=== PATIENT | male | born 1980 | race Hispanic/Latino ===

== ENCOUNTER 2016-12-06 18:56 | Emergency (ER) | payer SELFPAY ==
[~2016-12-06 18:56] MED LIST: ISOVUE-370 76%-LOCM 1 ML ONE
[2016-12-06 19:20] LABS: #Basophils 0.1 thou/uL (0.0-0.2); #Eosinphils 0.4 thou/uL (0.0-0.7); #Lymphocytes 2.6 thou/uL (1.20-3.40); #Monocytes 0.4 thou/uL (0.11-0.59); #Neutrophils 3.5 thou/uL (1.40-6.50); %Basophils 0.8 % (0.0-1.0); %Eosinophils 6.2 % (0.0-10.0); %Lymphocytes 37.2 % (21.0-51.0); %Monocytes 6.1 % (0.0-10.0); Hematocrit 43.6 % (42.0-52.0); Mean Platelet Volume 7.9 fL (7.4-10.4); Red Blood Cell (RBC) Count 4.73 mill/uL (4.70-6.10)
--- NOTE | 2016-12-06 19:29 | RAD ---
UPRIGHT PORTABLE CHEST: 12/06/16 HISTORY: 36-year-old male with chest pain. History of recent diagnosis of kidney cancer with shortness of hernando ath and chest pain today. Monitor leads overlie the chest. There is mild vascular congestion. Heart size is within normal limi ts. No confluent pneumonia or overt edema. IMPRESSION: Mild vascular congestion. No pneumonia, edema, pleural effusion or other acute process. No old studi es. POS: GAVIN
[2016-12-06 19:42] LABS: ALT (SGPT) 41 U/L (8-55); AST (SGOT) 26 U/L (5-34); Alkaline Phosphatase 87 U/L (40-150); Anion Gap 15 mmol/L (10-20); BUN (Urea Nitrogen) 11 mg/dL (8.9-20.6); Bilirubin, Total 0.4 mg/dL (0.2-1.2); Calc. Creatinine Clearance 0 mL/min (70-130); Calcium 9.6 mg/dL (7.8-10.44); Carbon Dioxide 23 mmol/L (22-29); Chloride 108 mmol/L (98-107); Estimated GFR-MDRD 88; Globulin 4.4 g/dL (2.4-3.5); Magnesium 2.4 mg/dL (1.6-2.6); Protein, Total 8.9 g/dL (6.0-8.3)
[2016-12-06 19:45] LABS: Troponin I Less than 0.010 ng/mL (< 0.028)
--- NOTE | 2016-12-06 20:14 | CT ---
CT PULMONARY ANGIO CHEST INCLUDING 3D RENDERIN12/06/16 HISTORY: 36-year-old male with recently diagnosed kidney cancer with shortness of breath and chest pain today . There is an approximately 0.4 cm diameter subpleural pulmonary nodule in the anterior right upper lo be. No CT evidence for significant acute PE. Some of the more distal branches, particularly in the l ower lobes are suboptimally imaged because of motion and contrast bolus. No evidence of aortic aneur ysm or dissection. No pleural effusion or pericardial effusion. On the lower most scan slices throug h the right kidney, there is an approximately 3.1 cm diameter abnormal enhancing mass, evidence for renal cell malignancy. IMPRESSION: Central pulmonary arteries are free of thrombus. Some of the more distal branches are partially obsc ured because of motion and low density of the contrast bolus but there is no significant CT evidence for acute PE. Right renal mass. Right upper lobe subpleural 0.4 cm diameter pulmonary nodule. POS: JUAN C
[2016-12-06 20:19] LABS: Bilirubin Negative (Negative); Blood, Urine Negative (Negative); Glucose, Urine (Dipstick) Negative (Negative); Ketone, Urine Negative (Negative); Nitrite Negative (Negative); Protein, Urine (Dipstick) Negative (Neg-Trace); Urobilinogen 0.2 mg/dL (0.2-1.0)
== END 2016-12-06 22:40 | disposition home or self-care (01) ==
LOC: ERS 18:56
DX: E86.0 Dehydration (principal); R55 Syncope and collapse; N28.89 Other specified disorders of kidney and ureter; F17.210 Nicotine dependence, cigarettes, uncomplicated
CPT/HCPCS: 71010; 71275; 80053; 81003; 82553; 83735; 83880; 84484; 85025; 85379; 93005; 96360; 96361

== ENCOUNTER 2017-04-28 07:48 | Outpatient (CLI) | payer OTHER, SELFPAY ==
[2017-04-28] MEDS ORDERED: Iopamidol 370 76% 100 ML VIAL ONE (16:46)
== END 2017-04-28 07:49 | disposition home or self-care (01) ==
LOC: BICCT 07:48
PROVIDERS: ATTEND Urology
DX: N28.89 Other specified disorders of kidney and ureter (principal); M51.36 Other intervertebral disc degeneration, lumbar region; M48.061 Spinal stenosis, lumbar region without neurogenic claudication
CPT/HCPCS: 71046; 74170

== ENCOUNTER 2017-04-30 21:11 | Emergency (ER) | payer SELFPAY ==
[2017-04-30 22:10] LABS: Bilirubin Negative (Negative); Blood, Urine Negative (Negative); Clarity CLEAR (Clear); Glucose, Urine (Dipstick) Negative (Negative); Leukocyte Negative (Negative); Nitrite Negative (Negative); Protein, Urine (Dipstick) Negative (Neg-Trace); Specific Gravity, Urine 1.034 (1.002-1.036)
[2017-04-30 23:04] LABS: #Basophils 0.1 thou/uL (0.0-0.2); #Eosinphils 0.4 thou/uL (0.0-0.7); #Lymphocytes 2.2 thou/uL (1.20-3.40); #Monocytes 0.6 thou/uL (0.11-0.59); #Neutrophils 3.6 thou/uL (1.40-6.50); %Basophils 1.1 % (0.0-1.0); %Eosinophils 6.3 % (0.0-10.0); %Lymphocytes 31.4 % (21.0-51.0); %Neutrophils 52.3 % (42.0-75.0); Hemoglobin 15.6 g/dL (14.0-18.0); Mean Corpuscular HGB CONC 34.6 g/dL (32.0-36.0); Mean Corpuscular Hemoglobin 31.2 pg (27.0-31.0); Mean Corpuscular Volume 90.3 fl (80.0-94.0); Mean Platelet Volume 7.7 fL (7.4-10.4); Platelet Count 211 thou/uL (130-400); RBC Distribution Width 11.9 % (11.5-14.5); Red Blood Cell (RBC) Count 4.99 mill/uL (4.70-6.10)
--- NOTE | 2017-04-30 23:12 | ULT ---
ULTRASOUND ABDOMEN LIMITED: (RIGHT UPPER QUADRANT) DATE: 04/30/17 TIME: 10:30 p.m. HISTORY: 36-year-old male with right upper quadrant abdominal pain. FINDINGS: Gallbladder: Contracted due to non-NPO status. No mural thickening. Sensitivity is decreased because of the contracted state, but no large gallstone is identified. No pericholecystic edema. Common duct: 4 mm. Liver: Normal size and echogenicity. Pancreas: Poorly visualized because of body habitus and partial obscuring by shadowing from bowel gas . Right kidney: There is an approximately 3.5 x 3.5 x 4 cm right renal upper pole, partially exophytic, solid mass, with mixed intermediate and low echogenicity, and blood flow. This was demonstrated on a CT angiogram of the chest of 12/06/16, and reported. There is no hydronephrosis of the right kidney. IMPRESSION: 1. Right renal solid mass is evidence for right renal neoplasm, such as renal cell carcinoma. Ur ology consultation is strongly recommended. 2. Contracted gallbladder. No convincing evidence of acute cholecystitis. Code T JN R POS: JUAN C
[2017-04-30 23:23] LABS: ALT (SGPT) 34 U/L (8-55); AST (SGOT) 24 U/L (5-34); Albumin 4.6 g/dL (3.5-5.0); Alkaline Phosphatase 88 U/L (40-150); Anion Gap 14 mmol/L (10-20); BUN (Urea Nitrogen) 13 mg/dL (8.9-20.6); Bilirubin, Total 0.4 mg/dL (0.2-1.2); Calc. Creatinine Clearance 0 mL/min (70-130); Calcium 9.7 mg/dL (7.8-10.44); Carbon Dioxide 25 mmol/L (22-29); Chloride 106 mmol/L (98-107); Estimated GFR-MDRD 89; Globulin 4.2 g/dL (2.4-3.5); Glucose 70 mg/dL (70-105); Lipase 35 U/L (8-78); Potassium 3.8 mmol/L (3.5-5.1); Protein, Total 8.8 g/dL (6.0-8.3); Sodium 141 mmol/L (136-145)
== END 2017-05-01 00:35 | disposition left against medical advice (07) ==
LOC: ERS 21:11
DX: Z53.21 Procedure and treatment not carried out due to patient leaving prior to being seen by health care provider (principal)
CPT/HCPCS: 36415; 76705; 80053; 81003; 83690; 85025

== ENCOUNTER 2017-05-02 11:02 | Outpatient (CLI) | payer OTHER | END 2017-05-02 11:03 | disposition home or self-care (01) | LOC: BICULT 11:02 | PROVIDERS: ATTEND Urology | DX: R10.11 Right upper quadrant pain (principal); N28.89 Other specified disorders of kidney and ureter | CPT/HCPCS: 76705 ==

== ENCOUNTER 2017-05-14 09:00 | Inpatient (IN) | payer OTHER, SELFPAY ==
--- NOTE | 2017-05-08 07:58 | HP ---
HISTORY OF PRESENT ILLNESS: Hima Luu is a 36-year-old Ukrainian speaking only male who is accompani ed by his . The patient reports to see me regarding several problems. He sees me regarding the left perianal intermittently draining wound. He apparently has been seen at the [facility] on 06/2016, [facility] on 09/2016, [facility] on 11/2016. Different CAT scans have revealed gas containing fluid collection left perianal. [facility] on , he had incision and drainage and return there for wound care and packing. He has had at [facility] t 2 if not 3 incision and drainages procedures. He has never seen the surgeon regarding care of this . GI function was otherwise normal. The patient was referred by Dr. Anita Valencia, when the patient made efforts to make an appointment to see her about a right superior pole renal mass 3.5 x 4 cm milly urements according to CAT scans obtained on 09/2016. On 11/2016, he did have a CT angio at [facility] and a right renal mass was appreciated. The patient complains of intermittent pain, right upper quadrant and right flank associated with naus ea and vomiting at times. He perceives that when he has the pain, he has radiation towards his testi naya and perceives that there is drainage of food that he consumed out the wound, left perianal. On , CBC at [facility]. Chemistries at [facility] comprehensive metabolic pro file are normal. He has an appointment to see Dr. Anita Valencia of Urology regarding the right renal mass. 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 His accompanies him and she speaks very good Irish. ALLERGIES: None. ALCOHOL: None. TOBACCO: None. MEDICATIONS: None. PAST SURGICAL HISTORY: Noncontributory. PAST MEDICAL HISTORY: None except as noted above, incision and drainage of left perianal areas at [facility] two or three different occasions. 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 REVIEW OF SYSTEMS: Ten-point noncontributory otherwise. PHYSICAL EXAMINATION: VITAL SIGNS: Weight 259 pounds, height 70 inches, blood pressure 140/81, pulse 87, temperature 98.4 degrees. LUNGS: Clear to auscultation. CARDIAC: Regular rate and rhythm without murmur or gallop. ABDOMEN: Obese, soft, nontender. He has mild tenderness in his right upper quadrant, but no periton eal signs. Left perianal reveals a scar from previous drainage. He has hypertrophied area wit h thinned out skin with probably underlying sinus that is slightly tender. There is slight induratio n towards the anus, but no fluctuance and no redness and no evidence of current abscess. ASSESSMENT AND PLAN: 1. 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 A drain is not necessary at this time. He has no active infection. He does, however, need exam under anesthesia and possibly seton placem ent versus fistulotomy. A quick solution may be possible, but on the other hand, he may need a seton , which could worked in several weeks or months therapy and probably not require secondary surgical p rocedure under anesthesia. 2. Episodic right upper quadrant pain, back radiation, nausea and vomiting. I doubt this is related to his right renal mass. His description of radiation towards his testicle and pain is uncertain an d does not make sense to me. Gallstones were not seen on his CAT scan. CAT scan reports from [facility] in the [facility]. Would recommend gallbladder ultrasound. We jackie l check finances see if he can afford that. 3. Right renal mass. Appointment to see Dr. Anita Valencia, await her opinion. 4. In my opinion, the patient's perirectal problem and right renal problem could be addressed under the same anesthesia. We will await Dr. Anita Valencia's evaluation and discussed with her after that.
[2017-05-14 09:52] VITALS: BMI 36.7
[2017-05-20] MEDS ORDERED: CEFAZOLIN/Water 2 GM/20 ML SYRINGE ONE (06:44)
[2017-05-20] MEDS ORDERED: Lidocaine 2% 10 ML INJ ONE (07:10)
[2017-05-20] MEDS ORDERED: Bupivacaine PF 0.5% 30 ML VIAL ONE (07:10)
[2017-05-20] MEDS ORDERED: Ioversol 68 % 50 ML VIAL ONE (07:10)
[2017-05-20] MEDS ORDERED: Fentanyl 100 MCG/2 ML VIAL ONE (07:18)
[2017-05-20] MEDS ORDERED: Midazolam HCl 2 mg/2 ml Vial ONE (07:18)
[2017-05-20] MEDS ORDERED: Fentanyl 250 MCG/5 ML VIAL ONE ×2 (07:26→08:47)
[2017-05-20] MEDS ORDERED: Rocuronium Bromide 50 MG/5 ML VIAL ONE ×2 (08:47→08:48)
[2017-05-20] MEDS ORDERED: HYDROmorphone 0.5 MG/0.5 ML SYRINGE ONE ×4 (11:58→12:57)
[2017-05-20] MEDS ORDERED: Acetaminophen 500 MG TAB PO SCH (13:00)
[2017-05-20] MEDS ORDERED: Morphine 4 MG/ML VIAL SLOW IVP PRN ×3 (13:04→17:30)
[2017-05-20] MEDS ORDERED: Ondansetron HCl/PF 4 MG/2 ML Vial IVP PRN ×2 (13:04→13:26)
[2017-05-20] MEDS ORDERED: Metoclopramide HCl 10 MG/2 ML VIAL IVP PRN (13:04)
[2017-05-20] MEDS ORDERED: diphenhydrAMINE 50 MG in Sodium Chloride 0.9% 50 ML IVPB PRN (13:05)
[2017-05-20] MEDS ORDERED: Promethazine HCl 25 MG/ML VIAL SLOW IVP PRN (13:26)
[2017-05-20] MEDS ORDERED: Promethazine HCl 25 MG/ML VIAL IM PRN (13:26)
[2017-05-20] MEDS ORDERED: Morphine Sulfate 2 MG/ML SYRINGE SLOW IVP PRN (13:26)
[2017-05-20] MEDS ORDERED: PROPOFOL 200 MG/20 ML VIAL ONE (13:51)
[2017-05-20] MEDS ORDERED: Glycopyrrolate 0.2 MG/ML 5 ML SYRINGE ONE (13:51)
[2017-05-20] MEDS ORDERED: Dexamethasone 20 MG/5 ML VIAL ONE (13:51)
--- NOTE | 2017-05-20 15:15 | OP ---
DATE OF PROCEDURE: 05/20/2017 PREOPERATIVE DIAGNOSIS: Right renal mass. POSTOPERATIVE DIAGNOSIS: Right renal mass. PROCEDURE: Hand-assisted laparoscopic nephrectomy on the right. SURGEON: Anita Valencia M.D. ANESTHESIA: General with ET tube. COMPLICATIONS: None, but did require 2 vascular juan to completely include the renal hilum. SPECIMEN: Kidney. ESTIMATED BLOOD LOSS: 200, crystalloid 1200, urine output 600. DRAIN REMAINING: Was a 16-Burundian Conrad. INDICATIONS: The patient is a 36-year-old male, who was seen in the office after having been diagnosed with a concerning renal mass in 09/2016 and saw me for the first time in 04/2017. After completing a workup, it was deemed likely to be consistent with renal cell carcinoma without any concern for metastases. So, we set up for a nephrectomy. The patient was brought into the room by Anesthesia, laid on the table in supine position. After receiving general anesthetic, his abdomen was shaved and then marked accordingly. A Conrad catheter was placed and then the patient was positioned in semi-lateral with the beanbag and multiple cushions of support in all weightbearing areas. He was securely taped to the bed at the arm , shoulder, chest, hip, thigh, and lower leg. Then, he was prepped and draped in sterile fashion. An incision was made in the right lower quadrant, taken down to the fascia, opening up the oblique and transversalis keeping lateral to the rectus muscle and then taken down to the peritoneum, which was then grasped and sharply opened. The incision was widened and noted to be able to be large enough for my hand to go in and out and then a GelPort was placed with the hand and insufflation; initially thought there was insufflation, but had not been turned on quite yet. Two other ports were placed midline just above the umbilicus and then in the epigastrium. After further dissection, a liver retractor was placed at the mid axillary line through a 5 mm port for retracting the liver throughout the rest of the case. The insufflation was adequate for the second port and was not really needed for the first. With both ports in, then the table angled more to the left and resection began. The colon was taken down on the white line of Toldt and rotated medially. There were still attachments from the mesentery over the anterior superior kidney and these were carefully taken down, but not before releasing both the hepatic ligaments and the hepatorenal ligaments with the LigaSure. Then, attention was turned to the inferior portion of the kidney where the fat was taken down to the psoas muscle and the ureter located and identified and then followed up towards the renal hilum where the duodenum did not need to be kocherized as it was medial enough that the renal vein was identified fairly easily and carefully dissected out. There appeared to be a smaller arterial vessel next to it that was not easily noted on the CT, as it did appear that there was only 1 artery, but it did appear that it branched very early and this certainly was the case. His hilum was further dissected, some of the posterior attachments were then taken down with the LigaSure in order to mobilize it and allow my hand to be under the kidney and further dissect around the hilum itself. Some of the anterior attachments were further released with LigaSure and in the area of the superior portion of the hilum where the branching of the artery was noted. So, care was taken to go more medial to this. At this point , I went ahead and ligated the ureter itself and this was done with clips both proximally and distally and going across it the LigaSure and elevating the inferior portion of the kidney and getting my hand around the entire hilum itself. I was able to place a vascular stapler. Once this was just simply clasped and closed without any resection, some bleeding was noted consistent with having been torn at the level of the kidney, just in clamping the hilum. For this reason, resection of this occurred rapidly and there still appeared to be some bleeding noted. There was still an attachment at the hilum, so a second vascular staple was rapidly positioned after carefully placing it on the remaining attachments. During this placement, it was clearly noted that there was bleeding from the kidney itself as back bleeding as opposed to anything from the hilum. Once the second portion of the hilum was transected, it appeared that there was only back bleeding remaining. However, the entire anterior and some of the lateral attachments of the kidney were still present. So, in order to better assess things, I used the vascular staple to go across the anterior portion likely--leaving the majority, if not all, of the adrenal gland as I hugged the superior portion of the kidney. Once this was freed, I was able to better assess the bed. The hilum was not bleeding, and the rest of the lateral attachments were taken down with the LigaSure. Then, the kidney was removed easily through the hand port; no bag was needed. Attention was turned back to the hilum and the adrenal bed. No obvious bleeding was noted. Significant irrigation then occurred to better assess this area, and still no bleeding was noted. I then placed some FloSeal in the area of the adrenal bed as well as over the crossed vessels. Then, the laparoscopic ports were removed and the GelPort removed off of the hand port, but left the port itself in place in order to use this to help elevate and close the two 10 and 12 ports that had been placed midline. A 2-0 Vicryl was used to close the fascia in the 10 and 12 ports. No fascia was closed in the 5 mm port. One good solid bite for each was noted and there was significant angling of the port entrance. This felt like it was adequately closed when palpated from above and below. Then, using #1 PDS, the hand port incision was closed, reapproximating the transversalis and oblique fascia starting from the lateral ends and meeting in the middle with all the fascia closed and then all incisions were irrigated copiously. A 3-0 Vicryl was used to reapproximate the dermis and then 4-0 Monocryl was used to reapproximate the subcutaneous tissue. Steri-Strips and sterile dressing were applied. The patient tolerated the procedure well and was then awakened and transferred to the PACU in stable condition. Prior to placing the final dressings on, a total of 20 mL lidocaine and Marcaine mixture was injected in the hand port and the laparoscopic port sites and the patient was then transferred to the PACU in stable condition. NATHALIE
[2017-05-20] MEDS: Lactated Ringer's 1,000 ML IV SCH (15:39)
[2017-05-20] MEDS: Heparin 5,000 UNITS/ML VIAL SC SCH ×2 (15:40→22:36)
[2017-05-20] MEDS: Acetaminophen 500 MG TAB PO SCH (18:11)
[2017-05-20] MEDS: Morphine 4 MG/ML VIAL SLOW IVP PRN ×2 (19:05→22:33)
[2017-05-20] MEDS ORDERED: Famotidine/PF 20 mg/2ml Vial SLOW IVP SCH (21:00)
[2017-05-20] MEDS: Pantoprazole 40 MG VIAL IVP SCH (22:34)
[2017-05-20] MEDS: Docusate 100 MG CAP PO SCH (22:35)
[2017-05-21] MEDS: Lactated Ringer's 1,000 ML IV SCH ×4 (00:45→18:12)
[2017-05-21] MEDS: Acetaminophen 500 MG TAB PO SCH ×2 (00:50→06:31)
[2017-05-21 05:42] LABS: Hemoglobin 14.8 g/dL (14.0-18.0)
[2017-05-21 06:08] LABS: Anion Gap 15 mmol/L (10-20); BUN (Urea Nitrogen) 16 mg/dL (8.9-20.6); Calc. Creatinine Clearance 125 mL/min (70-130); Calcium 9.2 mg/dL (7.8-10.44); Carbon Dioxide 22 mmol/L (22-29); Chloride 104 mmol/L (98-107); Estimated GFR-MDRD 60; Glucose 112 mg/dL (70-105); Potassium 4.2 mmol/L (3.5-5.1); Sodium 137 mmol/L (136-145)
[2017-05-21] MEDS: Morphine 4 MG/ML VIAL SLOW IVP PRN ×4 (06:30→21:53)
[2017-05-21] MEDS: Docusate 100 MG CAP PO SCH ×2 (09:02→21:35)
[2017-05-21] MEDS: Heparin 5,000 UNITS/ML VIAL SC SCH ×3 (09:03→21:35)
--- NOTE | 2017-05-21 09:16 | PRG ---
DATE OF SERVICE: 05/21/2017. SUBJECTIVE: The patient has done well overnight. He has no complaints. He has had some burping with rumbling in the abdomen, but no passage of gas. No nausea or vomiting since yesterday. His pain is controlled. He is breathing well without any shortness of breath. OBJECTIVE: VITAL SIGNS: Have been stable. His heart rate has come down from 100s to 70s- 80s, sat'ing 96% on room air and afebrile. His urine output was 1100 overnight. He is draining clear yellow urine. LUNGS: Clear to auscultation and he was able to get up to almost 1500 on the incentive spirometer. ABDOMEN: Softly distended with the dressings with old drainage noted. Appropriately tender. LABORATORY DATA: Revealed a hemoglobin and hematocrit of 14.8 and 42.1 and a normal chemistry with BUN and creatinine of 16 and 1.35. ASSESSMENT AND PLAN: A 36-year-old male status post hand-assisted laparoscopic nephrectomy on the right for renal mass, doing well on postoperative day #1. We will remove the Conrad and allow him to void on his own. He should ambulate as much as possible and continue the incentive spirometer and await bowel function return. NATHALIE
[2017-05-21] MEDS: Pantoprazole 40 MG VIAL IVP SCH (21:35)
[2017-05-22] MEDS: Lactated Ringer's 1,000 ML IV SCH (05:16)
--- NOTE | 2017-05-22 06:23 | EKG ---
Test Reason : Blood Pressure : / mmHG Vent. Rate : 088 BPM Atrial Rate : 088 BPM P-R Int : 142 ms QRS Dur : 084 ms QT Int : 332 ms P-R-T Axes : 051 032 006 degrees QTc Int : 401 ms Normal sinus rhythm with sinus arrhythmia Normal ECG When compared with ECG of 14-MAY-2017 09:50, (Unconfirmed) Nonspecific T wave abnormality now evident in Lateral leads Confirmed by AMIE JOHNSON ([id number]) on 05/22/2017 6:14:37 AM Referred By: Confirmed By:AMIE JOHNSON
[2017-05-22] MEDS: Heparin 5,000 UNITS/ML VIAL SC SCH ×3 (09:26→22:15)
[2017-05-22] MEDS: Docusate 100 MG CAP PO SCH ×2 (09:26→22:15)
--- NOTE | 2017-05-22 11:27 | PRG ---
DATE OF SERVICE: 05/22/2017 SUBJECTIVE: The patient did well overnight. He has been walking in the halls. He has less dyspepsi a and more movement related to the bowels, but has not passed gas. No vomiting. His catheter was re moved yesterday and he is voiding without difficulty. PHYSICAL EXAMINATION: VITAL SIGNS: Vital signs have been stable. He has excellent urine output. LUNGS: Clear to auscultation bilaterally and he could do 1500 on the incentive spirometer. ABDOMEN: Softly distended with bowel sounds noted. The dressings were removed and the incisions wer e clean, dry, and intact with Steri-Strips. EXTREMITIES: He had no lower extremity edema. ASSESSMENT: We have a 36-year-old male postop day #2 from a right hand-assisted laparoscopic nephrec richard, doing well. We will change his fluids over to maintenance and he may shower as long as the chinedu er does not hit directly onto his abdomen. We will hold off on a diet until he passes gas.
[2017-05-22] MEDS: D5 1/2 NS w/10 mEq KCl 1,000 ML/1,000 ML BAG IV SCH (11:45)
[2017-05-22] MEDS: Morphine 4 MG/ML VIAL SLOW IVP PRN ×3 (12:01→22:26)
[2017-05-22] MEDS: Pantoprazole 40 MG VIAL IVP SCH (22:16)
[2017-05-23] MEDS: D5 1/2 NS w/10 mEq KCl 1,000 ML/1,000 ML BAG IV SCH ×2 (01:49→15:55)
[2017-05-23] MEDS: Docusate 100 MG CAP PO SCH (09:00)
[2017-05-23] MEDS: Heparin 5,000 UNITS/ML VIAL SC SCH (09:01)
[2017-05-23] MEDS ORDERED: Acetaminophen/Codeine 30-300mg Tablet PO PRN ×2 (10:26)
--- NOTE | 2017-05-23 13:45 | PRG ---
DATE OF SERVICE: 05/23/2017 SUBJECTIVE: The patient has done well overnight, slept well and only needed pain medicine once. He feels like his gas is ready to be passed, but he has not passed it. He has had much less burping and no nausea. He is ambulating without difficulty and doing well on the incentive spirometer. OBJECTIVE: VITAL SIGNS: Afebrile. Vital signs stable. He has slightly high blood pressure. The night before 142/90, but otherwise 127/86 and doing well. The incentive spirometer getting above 2000. LUNGS: Clear to auscultation bilaterally. HEART: Regular rate and rhythm with no murmurs, gallops, rubs. ABDOMEN: Softly distended with bowel sounds. Incisions clean, dry, and intact with Steri-Strips. ASSESSMENT: This is a 36-year-old male postop day #3 of right hand-assisted laparoscopic nephrectomy showing RCC Aurora grade III, doing well, awaiting bowel activity. We reviewed his pathology resul ts in detail and expected follow up surveillance for that. We also reviewed in anticipation of passi ng gas. Once this occurs, we will advance his diet, change him over to oral medicines and as long as he is tolerating that he should be able to be discharged. At this point, continue current care and await flatus.
[2017-05-23 16:52] VITALS: BP 125/78; TEMP 97.9
--- NOTE | 2017-05-23 23:21 | DIS ---
DATE OF SERVICE: 05/23/2017 ADMISSION DIAGNOSIS: Right renal mass. DISCHARGE DIAGNOSIS: Right renal mass, status post hand-assisted laparoscopic nephrectomy for renal cell carcinoma, Aurora grade III, negative margins. Please see the patient's H&P for full details, but he was found to have right-sided renal mass and se t up for resection. He had this on 05/20/2017 and did well postoperatively. By the day of discharge , he was ambulating, his pain was controlled with oral medicines, and he was tolerating intake. He w ill be discharged home with a prescription for pain medicine as needed and instructed to follow up in the office in 4 weeks. We already reviewed and he is to have no heavy lifting or straining for the following 6 weeks.
== END 2017-05-23 17:15 | disposition home or self-care (01) | DRG 658 ==
LOC: SURG A 05-20 06:06 → SURG B 05-20 14:21
PROVIDERS: ADMIT Urology; ATTEND Urology
PROC: 0TT00ZZ Resection of Right Kidney, Open Approach (ICD-10-PCS; principal; 2017-05-22)
DX: C64.1 Malignant neoplasm of right kidney, except renal pelvis (principal); R35.1 Nocturia; R74.0 Nonspecific elevation of levels of transaminase and lactic acid dehydrogenase [LDH]
CPT/HCPCS: 36415; 80048; 85014; 85018; 88307; 93005; 93010; C9113; J1100; J1170; J1644; J2250; J2270; J2405; J2704; J2765; J3010; Q9967; S0020

== ENCOUNTER 2017-05-14 09:27 | Outpatient (CLI) | payer OTHER ==
--- NOTE | 2017-06-09 11:15 | EKG ---
Test Reason : Blood Pressure : / mmHG Vent. Rate : 069 BPM Atrial Rate : 069 BPM P-R Int : 152 ms QRS Dur : 078 ms QT Int : 378 ms P-R-T Axes : 055 051 000 degrees QTc Int : 405 ms Normal sinus rhythm Normal ECG When compared with ECG of 06-DEC-2016 19:01, Vent. rate has decreased BY 35 BPM Confirmed by MACHO STARK M.D. ([id number]) on 06/09/2017 11:14:19 AM Referred By: DANNIELLE Confirmed By:MACHO STARK M.D.
== END 2017-05-14 09:28 | disposition home or self-care (01) ==
LOC: LABBT 09:27
PROVIDERS: ATTEND Urology
DX: Z01.818 Encounter for other preprocedural examination (principal); N28.89 Other specified disorders of kidney and ureter
CPT/HCPCS: 86850; 86900; 86901; 93005; 93010

== ENCOUNTER 2017-05-30 09:39 | Day surgery (SDC) | payer OTHER, SELFPAY ==
[2017-05-29 13:48] VITALS: BMI 35.3
--- NOTE | 2017-05-29 13:57 | HP ---
ADDENDUM HISTORY OF PRESENT ILLNESS: Hima Luu reports today after undergoing right nephrectomy per Dr. Gui hernandez. He had renal cell carcinoma. He has had continued problems with drainage from his perirectal a bscess. The plan is to explore this tomorrow under general anesthesia and perform fistulotomy or Seton suture placement is indicated. He will undergo a bowel prep with clear liquids, magnesium citrate today an d a Fleet's enema in the morning prior to surgery. He understands risks and benefits. Questions ans wered. For details of his past history see above history and physical. PHYSICAL EXAMINATION: VITAL SIGNS: Blood pressure 133/82, 79, 97.9 degrees. 245 pounds, 70 inches. LUNGS: Clear to auscultation. CARDIAC: Regular rate and rhythm without murmur or gallop. ABDOMEN: Soft. Scar right mid lateral abdomen per above surgical history nephrectomy. PERIANAL: Buttocks reveals perianal abscess with draining sinus. 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 PLAN: Evaluation under anesthesia, possible fistulotomy or Seton. He understands risks, benefits an d consents.
[2017-05-30] MEDS ORDERED: Piperacillin/Tazobactam 3.375 GM in Sodium Chloride 0.9% 100 ML IVPB SCH (10:45)
[2017-05-30] MEDS ORDERED: Midazolam HCl 2 mg/2 ml Vial ONE (13:29)
[2017-05-30] MEDS ORDERED: Fentanyl 100 MCG/2 ML VIAL ONE (13:32)
[2017-05-30] MEDS ORDERED: Lidocaine 2% 10 ML INJ ONE (13:32)
[2017-05-30] MEDS ORDERED: Bupivacaine HCl 0.5%/Epinephrine 1:200,000/PF 30 ml Vial ONE (13:32)
[2017-05-30] MEDS ORDERED: Lidocaine 2% Jelly 5 ML TUBE ONE (13:34)
[2017-05-30] MEDS ORDERED: HYDROcodone/Acetaminophen 5/325 mg Tablet ONE (16:09)
[2017-05-30] MEDS ORDERED: Dexamethasone 20 MG/5 ML VIAL ONE (17:15)
[2017-05-30] MEDS ORDERED: PROPOFOL 200 MG/20 ML VIAL ONE (17:15)
[2017-05-30] MEDS ORDERED: Lidocaine 1% PF 5 ML VIAL ONE (17:15)
--- NOTE | 2017-05-30 19:15 | OP ---
DATE OF OPERATION: 05/30/2017 PREOPERATIVE DIAGNOSIS: Chronic draining wound, left buttock, status post recent nephrectomy right f or renal cell carcinoma. POSTOPERATIVE DIAGNOSIS: Chronic draining wound, left buttock, status post recent nephrectomy right for renal cell carcinoma. PROCEDURE PERFORMED: Examination under anesthesia, drainage of left buttock perirectal abscess with incision and drainage of a communicating sinus tract over the perineum leaving him to 2 open wounds. No communication to the rectum could be found. SURGEON: Dr. Son. ANESTHESIA: General. Local 0.5% Marcaine with epinephrine, 30 mL, mixed with 2% Xylocaine, 10 mL PROCEDURE IN DETAIL: Patient was taken to the operating room where under general LMA anesthesia in t he dorsal lithotomy position, buttocks and anus prepared with Betadine, draped in routine fashion. T he patient had a left buttock abscess. This had a chronic draining purulent material. This was prob ed and a sinus tract appreciated to track down towards the anus. This was opened using cautery. The re was extension of this sinus tract up towards the perineum anteriorly. A counter incision was made up towards the perineum anterior to the anus and wound opened through a second longitudinal incision . There are chronic granulation tissue, which was excised. Further probing and irrigation with leah xide using an 18 gauge needle failed to reveal a fistula in ano with Hill-Mendez retractor used in the anus to visualize this. The chronic granulating wounds was debrided, area irrigated. Wound pack ed open after good hemostasis obtained with the cautery. Patient tolerated the procedure well. Instructions given that he should daily wash this wound with soap and water during the bath, removed the dressing the first time, he does not need to repack it. He should follow up in my office in 2-3 weeks. There is a possibility that he may have a fistula in ano that is unappreciated at this time. Future operation may be necessary.
== END 2017-05-30 16:43 | disposition home or self-care (01) ==
LOC: SDC 09:39
PROVIDERS: ATTEND Specialist
PROC: 0D9P0ZZ Drainage of Rectum, Open Approach (ICD-10-PCS; principal; 2017-05-30)
DX: K61.1 Rectal abscess (principal)
CPT/HCPCS: J0670; J1100; J2001; J2250; J2543; J2704; J3010; J7050

== ENCOUNTER 2017-06-08 00:28 | Inpatient (IN) | payer OTHER, SELFPAY ==
[2017-06-08 01:26] LABS: #Basophils 0.1 thou/uL (0.0-0.2); #Eosinphils 0.4 thou/uL (0.0-0.7); #Lymphocytes 2.7 thou/uL (1.20-3.40); #Monocytes 0.5 thou/uL (0.11-0.59); #Neutrophils 3.7 thou/uL (1.40-6.50); %Basophils 0.8 % (0.0-1.0); %Eosinophils 4.9 % (0.0-10.0); %Monocytes 6.3 % (0.0-10.0); %Neutrophils 50.9 % (42.0-75.0); Hemoglobin 13.8 g/dL (14.0-18.0); Mean Corpuscular HGB CONC 35.1 g/dL (32.0-36.0); Mean Corpuscular Hemoglobin 31.4 pg (27.0-31.0); Mean Corpuscular Volume 89.3 fl (80.0-94.0); Mean Platelet Volume 6.9 fL (7.4-10.4); Platelet Count 255 thou/uL (130-400); RBC Distribution Width 11.3 % (11.5-14.5); White Blood Cell (WBC) Count 7.3 thou/uL (4.8-10.8)
[2017-06-08 01:47] LABS: ALT (SGPT) 20 U/L (8-55); AST (SGOT) 17 U/L (5-34); Albumin 4.3 g/dL (3.5-5.0); Alkaline Phosphatase 85 U/L (40-150); Anion Gap 10 mmol/L (10-20); BUN (Urea Nitrogen) 10 mg/dL (8.9-20.6); Bilirubin, Total 0.4 mg/dL (0.2-1.2); Calc. Creatinine Clearance 0 mL/min (70-130); Calcium 9.6 mg/dL (7.8-10.44); Carbon Dioxide 28 mmol/L (22-29); Chloride 105 mmol/L (98-107); Estimated GFR-MDRD 59; Globulin 3.8 g/dL (2.4-3.5); Glucose 98 mg/dL (70-105); Lipase 194 U/L (8-78); Potassium 3.9 mmol/L (3.5-5.1); Protein, Total 8.1 g/dL (6.0-8.3); Sodium 139 mmol/L (136-145)
[2017-06-08] MEDS ORDERED: Ondansetron ODT 4 MG TAB ONE (03:42)
[2017-06-08] MEDS ORDERED: Morphine 4 MG/ML VIAL ONE (03:42)
[2017-06-08 04:31] LABS: Bilirubin Negative (Negative); Blood, Urine Negative (Negative); Clarity CLEAR (Clear); Glucose, Urine (Dipstick) Negative (Negative); Leukocyte Negative (Negative); Nitrite Negative (Negative); Protein, Urine (Dipstick) Negative (Neg-Trace); Specific Gravity, Urine 1.023 (1.002-1.036); Urobilinogen 0.2 mg/dL (0.2-1.0)
[2017-06-08] MEDS ORDERED: Ondansetron HCl/PF 4 MG/2 ML Vial IVP PRN ×2 (08:34→20:23)
[2017-06-08] MEDS ORDERED: Ondansetron ODT 4 MG TAB SL PRN (08:34)
[2017-06-08] MEDS ORDERED: Morphine 4 MG/ML VIAL SLOW IVP PRN ×3 (08:35→20:22)
[2017-06-08] MEDS: Lactated Ringer's 1,000 ML IV SCH ×2 (08:57→21:52)
[2017-06-08 08:59] VITALS: BMI 35.3
[2017-06-08] MEDS ORDERED: ISOVUE-370 76%-LOCM 1 ML ONE (15:29)
--- NOTE | 2017-06-08 16:39 | NM ---
HIDA SCAN: Date: 06-08-17 Provided Clinical History: Right upper quadrant pain. Radiopharmaceutical: 4.5 mCi Technetium 99M Mebrofenin IV. FINDINGS: There is normal hepatic extraction of radiotracer by the liver with excretion to the gallbladder and biliary system in the normal amount of time. There is delayed biliary transit, nonspecific. Subsequen t to the administration of CCK analog, radiotracer is excreted from the gallbladder into bowel. Calcu lated gallbladder injection fraction is 96%. IMPRESSION: 1. No evidence for cystic or complete common duct obstruction. 2. Nonspecific delayed biliary to bowel transit. 3. Normal gallbladder ejection fraction. POS: [facility]
--- NOTE | 2017-06-08 18:17 | CT ---
PRELIMINARY REPORT/[facility]/EMERGENTY AFTER-HOURS PROCEDURE CONTRAST: 60 mL of ISO 370 administered intravenously. COMPARISON: No relevant prior studies available. FINDINGS: Lung bases: Mild bibasilar subsegmental atelectasis versus scarring is noted. No mass. No consolidati on. ABDOMEN: Liver: Unremarkable. No mass. Gallbladder and bile ducts: Vague noncalcified gallstones versus artifact. No ductal dilation. Pancreas: Unremarkable. No mass. No ductal dilation. Spleen: Unremarkable. No splenomegaly. Adrenals: Unremarkable. No mass. Kidneys and ureters: Prior right nephrectomy No solid mass. No hydronephrosis. Stomach and bowel: No obstruction. Mild mucosal thickening. Semisolid contents in the mid abdominal s mall bowel loops with mild prominence PELVIS: Appendix: No findings to suggest acute appendicitis. Bladder: Unremarkable. No mass. Reproductive: Unremarkable as visualized. ABDOMEN and PELVIS: Intraperitoneal space: Unremarkable. No free air. No significant fluid collection. Bones/joints: No acute fracture. No dislocation. Soft tissues: Postsurgical changes in the anterior abdominal wall. Question minimal fullness in the l eft perianal tissues Vasculature: Unremarkable. No abdominal aortic aneurysm. Lymph nodes: Unremarkable. No enlarged lymph nodes. IMPRESSION: Nonspecific bowel gas pattern which may represent mild ileus/enteritis. Correlate clinically. Continu ed followup as clinically indicated if concern exists for early partial small bowel obstruction Vague noncalcified gallstones versus artifact Question minimal fullness to the left perianal tissues. No definite collection. Correlate clinically Thank you for allowing us to participate in the care of your patient. Dictated and Authenticated by: Stuart Dunaway MD 06/08/2017 5:40 AM Central Time ([place] & [place]) FINAL REPORT EMERGENT AFTER HOURS CT OF THE ABDOMEN AND PELVIS: IMPRESSION: Agree with the preliminary interpretation given by [facility]. POS: [facility]
[2017-06-08] MEDS: Sodium Chloride 0.9% 1,000 ML IV SCH (20:45)
[2017-06-09 05:31] LABS: #Eosinphils 0.3 thou/uL (0.0-0.7); #Lymphocytes 1.9 thou/uL (1.20-3.40); #Monocytes 0.4 thou/uL (0.11-0.59); #Neutrophils 3.2 thou/uL (1.40-6.50); %Basophils 0.8 % (0.0-1.0); %Eosinophils 4.9 % (0.0-10.0); %Lymphocytes 32.4 % (21.0-51.0); %Monocytes 7.4 % (0.0-10.0); %Neutrophils 54.5 % (42.0-75.0); Hemoglobin 13.3 g/dL (14.0-18.0); Mean Corpuscular HGB CONC 34.8 g/dL (32.0-36.0); Mean Corpuscular Volume 89.1 fl (80.0-94.0); Mean Platelet Volume 7.4 fL (7.4-10.4); Platelet Count 230 thou/uL (130-400); RBC Distribution Width 11.3 % (11.5-14.5); Red Blood Cell (RBC) Count 4.31 mill/uL (4.70-6.10); White Blood Cell (WBC) Count 5.8 thou/uL (4.8-10.8)
[2017-06-09] MEDS: Sodium Chloride 0.9% 1,000 ML IV SCH ×4 (05:33→20:30)
[2017-06-09 06:02] LABS: Anion Gap 11 mmol/L (10-20); BUN (Urea Nitrogen) 10 mg/dL (8.9-20.6); Calc. Creatinine Clearance 136 mL/min (70-130); Calcium 9.5 mg/dL (7.8-10.44); Carbon Dioxide 24 mmol/L (22-29); Chloride 106 mmol/L (98-107); Estimated GFR-MDRD 69; Glucose 78 mg/dL (70-105); Potassium 3.9 mmol/L (3.5-5.1); Sodium 137 mmol/L (136-145)
[2017-06-09] MEDS ORDERED: Famotidine 40 MG/4 ML VIAL SLOW IVP SCH (09:00)
[2017-06-09] MEDS ORDERED: Acetaminophen 500 MG TAB PO PRN (09:01)
[2017-06-09] MEDS ORDERED: diphenhydrAMINE 50 MG in Sodium Chloride 0.9% 50 ML IVPB PRN (09:01)
--- NOTE | 2017-06-09 09:13 | PRG ---
DATE OF SERVICE: 06/09/2017 HISTORY OF PRESENT ILLNESS: The patient is a 36-year-old male who recently underwent a right hand-assisted laparoscopic nephrectomy that went well and he was discharged on postoperative day 3, tolerating a diet, and he has done well since then. However, he also has a long history of right upper quadrant pain and he has already been seen by Dr. Son for this as well as an anal fistula and he presented with the same right upper quadrant pain that he has had off and on for several months if not longer. This was not different or changed in characteristic since the surgery. Although this was the first episode he had of it since surgery. He was admitted under the false diagnosis of small-bowel obstruction which he did not have and that is why he was admitted to my service by Dr. Anna over the weekend, but as previously detailed he does have this right upper quadrant pain and laboratory values revealed an elevated amylase and lipase so he was kept n.p.o. and admitted for further workup of this. OBJECTIVE: VITAL SIGNS: He has been afebrile with vital signs stable and good urine output. ABDOMEN: Soft, nondistended with mild right upper quadrant tenderness. His incisions are clean, dry, and intact with Steri-Strips still intact. LABORATORY DATA: Reveal creatinine has come down from 1.37 to 1.20. CBC still stable without any concern for white count. His amylase and lipase were 230 and 194 and now 268 and a lipase apparently was not drawn, so will order this. HIDA SCAN (06/08/17): relatively normal with non-specific findings; I'd appreciate Gen Surg and GI imput/interpretation ASSESSMENT: In assessment we have a 36-year-old male status post right hand- assisted laparoscopic nephrectomy on 05/30/2017 for T1A, RCC Aurora grade III, doing well postoperatively, but with right upper quadrant pain and elevated amylase and lipase that seems unrelated at this time. I will speak with Dr. Son who has seen him previously and consult GI as well. NATHALIE
--- NOTE | 2017-06-09 10:41 | HP ---
HISTORY OF PRESENT ILLNESS: Mr. Hima Luu is a 36-year-old male who is well known to me. I saw melissa hernandez for a perirectal abscess status post incision and drainage. He initially presented with abdominal pain in the emergency room, had a CAT scan demonstrating an incidental right renal density. The ata ent underwent urological consultation and underwent subsequent laparoscopic right nephrectomy for naya ar cell renal cell carcinoma grade 3, 3.5 cm tumor, T1a, N0, M0. The patient is doing well post-rese ction, but continues to have right upper quadrant pain. Prior to the operation, ultrasound revealed a contracted gallbladder, but no stones. Patient was admitted on this occasion and his lipase was no robert at 194, amylase 230. Liver function tests normal. CAT scan revealed questionable noncalcified s tones in the gallbladder. Previous ultrasound as mentioned above revealed a contracted gallbladder w ithout densities. The patient has ongoing right upper quadrant pain without radiation. He does have some nausea. He still has tenderness in his right upper quadrant. ALLERGIES: None. TOBACCO: None. ALCOHOL: None. MEDICATIONS: None currently. PAST SURGICAL HISTORY: Right nephrectomy, incision and drainage of buttock abscess, possible perirec rodney. PAST MEDICAL HISTORY: Clear renal cell carcinoma, status post right nephrectomy. REVIEW OF SYSTEMS: A 10 point review of systems, otherwise noncontributory. PHYSICAL EXAMINATION: VITAL SIGNS: 5 foot 10, 246 pounds, 35 BMI, 97.9, 61, 97/61. HEENT: Unremarkable. LUNGS: Clear to auscultation. CARDIAC: Regular rate and rhythm without murmur or gallop. ABDOMEN: Soft, tenderness in the right upper quadrant with guarding, positive Lyons sign. EXTREMITIES: Unremarkable. GENITOURINARY: Surgical wounds from his nephrectomy are clean and dry. LABORATORY DATA: On admission, his creatinine is 1.37 yesterday, today it is 1.20, BUN is normal. G FR is 69. Electrolytes unremarkable. Liver function tests normal. Amylase 230, lipase 194. White count 5, hemoglobin 13. ASSESSMENT AND PLAN: Cholecystitis. I would recommend laparoscopic cholecystectomy. Risk of infect ion, bleeding, visceral and biliary injury explained. The risk and benefits discussed. Would rubi coronado he would go home later today or tomorrow postoperatively. The patient agrees with proceeding laparoscopic cholecystectomy. 2. Status post right nephrectomy recently, curative resection. No evidence of disease. 3. Status post buttock abscess, incision and drainage recently. Wound is clean and dry. There is s till a slight opening. He has been caring for this daily, washing with soap and water and placing a gauze or Kotex pad. He should continue to do so. Expect this to heal without problems. There is no indication for infection in this area.
[2017-06-09] MEDS ORDERED: Iothalamate Meglumine 60% 50 ML VIAL FS ONE (13:06)
[2017-06-09] MEDS ORDERED: Bupivacaine HCl 0.5%/Epinephrine 1:200,000/PF 30 ml Vial ONE (13:06)
[2017-06-09] MEDS ORDERED: Fentanyl 250 MCG/5 ML VIAL ONE (13:15)
[2017-06-09] MEDS ORDERED: Ondansetron HCl/PF 4 MG/2 ML Vial IVP PRN (13:58)
[2017-06-09] MEDS ORDERED: Promethazine HCl 25 MG/ML VIAL SLOW IVP PRN (13:58)
[2017-06-09] MEDS ORDERED: Bacitracin Zinc Ointment 30 gm TUBE ONE (14:33)
[2017-06-09] MEDS ORDERED: traMADol HCl 50 MG TAB PO PRN ×2 (14:37)
[2017-06-09] MEDS ORDERED: Fentanyl 100 MCG/2 ML VIAL ONE ×2 (14:50→15:10)
--- NOTE | 2017-06-09 14:52 | RAD ---
INTRAOPERATIVE CHOLANGIOGRAM 2 VIEWS: DATE: 06/09/17. HISTORY: A 36-year-old male undergoing laparoscopic cholecystectomy. FINDINGS: Two images demonstrate contrast material throughout the common bile duct, common hepatic duct, cystic duct stump, and the lower portions of the hepatic ducts, as well as the right portion of the pancrea tic duct. There is no high-grade obstruction. Contrast passes into the lumen of the duodenum. Ther e is diffuse mild dilation of the entire biliary tree and especially the pancreatic duct. There is a tiny focal indentation of the inferior aspect of the common bile duct, slightly superior to the ampu lla and superior to the junction with the pancreatic duct. This is nonspecific. There is no evidenc e of intraluminal filling defect. IMPRESSION: 1. Mild ectasia of common bile duct and pancreatic duct. 2. No definite choledocholithiasis identified. POS: [facility] C
[2017-06-09] MEDS ORDERED: Magnesium Citrate 300 ML BOT PO SCH (15:00)
--- NOTE | 2017-06-09 15:05 | OP ---
DATE OF OPERATION: 06/09/2017 PREOPERATIVE DIAGNOSES: Right upper quadrant pain. CAT scan suggests gallstones. Ultrasound was pr eviously revealed a contracted gallbladder, suboptimal study, cholecystitis, and cholelithiasis. POSTOPERATIVE DIAGNOSES: Right upper quadrant pain. CAT scan suggests gallstones. Ultrasound was p reviously revealed a contracted gallbladder, suboptimal study, cholecystitis, and cholelithiasis with small adhesion in the right upper quadrant. PROCEDURES PERFORMED: Laparoscopic video cholecystectomy, normal cholangiograms using fluoroscopy. Lysis of adhesions freed, small bowel loop from the right upper quadrant. SURGEON: Napoleon Son M.D. ANESTHESIA: General. Local 0.5% Marcaine with epinephrine 30 mL. PROCEDURE IN DETAIL: The patient was taken to the operating room where under general anesthesia in s upine position, abdomen was prepared with ChloraPrep, draped in routine fashion. Local anesthetic in filtrated into skin and subcutaneous tissue about each port site. The right xiphoid incision was mad e. Pneumoperitoneum to 15 mmHg obtained, the Veress needle placed with 11-port. Video laparoscope i nserted. Umbilicus was free of adhesions. An infraumbilical incision made and a 5 port placed. Vid eo laparoscope moved to this port. Right lateral subcostal incision made mid clavicular, anterior ax illary lines and 5 ports placed. Liver appeared to be normal. There were some omental adhesions in the right upper to mid abdomen. Fundus of gallbladder grasped at cephalad and then grasped and refle cted laterally. Cystic artery and duct dissected free. Critical view obtained. Cystic artery doubl e clipped proximally. Cystic ducts then clipped on the gallbladder side. Opening made in the cystic duct, cholangiocath inserted and cholangiogram was obtained using fluoroscopy revealing free flow of contrast in the duodenum without filling defects in the common hepatic, common extrahepatic ducts. Cholangiocath removed. Cystic duct stump doubly clipped. Cystic artery and duct divided. The gallb ladder dissected free from the liver bed obtaining good hemostasis prior to division of final periton eal attachments. Gallbladder and contents removed and submitted to Pathology. The omental adhesions were taken down from the right upper quadrant. These are more inflammatory, easily peeled away. Th ere was no bleeding. There was a loop of small bowel adherent to the right upper quadrant, mid abdom en area, adherent by a small amount of fat on the mesenteric border on the antimesenteric border. Th is was carefully taken down with cold scissors. The fatty strand was doubly clipped. There was no i njury to the bowel. Remainder of the small bowel and colon grossly normal. Irrigant and pneumoperit oneum evacuated after good hemostasis ensured with the cautery and the liver bed. All this instrumen ts removed and all skin incisions approximated with interrupted subdermal 4-0 Monocryl and DermaGlue applied.
[2017-06-09] MEDS ORDERED: PROPOFOL 200 MG/20 ML VIAL ONE (15:19)
[2017-06-09] MEDS ORDERED: Dexamethasone 20 MG/5 ML VIAL ONE (15:19)
[2017-06-09] MEDS ORDERED: Glycopyrrolate 0.2 MG/ML 5 ML SYRINGE ONE (15:19)
[2017-06-09] MEDS ORDERED: Lidocaine 1% PF 5 ML VIAL ONE (15:19)
[2017-06-09] MEDS ORDERED: PHENYLEPHRINE-NS 100 MCG/ML 10 ML SYRINGE ONE (15:19)
[2017-06-09] MEDS: Heparin 5,000 UNITS/ML VIAL SC SCH ×2 (15:57→20:30)
[2017-06-09] MEDS ORDERED: Ondansetron ODT 4 MG TAB SL PRN (19:35)
[2017-06-09] MEDS: Famotidine 20 MG TAB PO SCH (20:30)
[2017-06-09] MEDS: Docusate 100 MG CAP PO SCH (20:30)
--- NOTE | 2017-06-09 21:16 | HP ---
DATE OF ADMISSION: 06/08/2017 ADMITTING PHYSICIAN: Luis Manuel Anna M.D. REASON FOR ADMISSION: Right upper quadrant pain. CHIEF COMPLAINT: "It hurts really bad right here" (patient is pointing to his right upper quadrant). HISTORY OF PRESENT ILLNESS: Mr. Luu is a 36-year-old male, who is a patient of Dr. Jagruti lugo, who recently underwent a hand assisted laparoscopic right nephrectomy for renal mass on 05/31/19. The tumor returned as a clear-cell carcinoma Aurora grade III with negative margins. He did we ll postoperatively and was discharged home and had been recovering quite well until he experienced ve ry severe 10/10 right upper quadrant pain that caused the patient to collapse to his knees and became diaphoretic. He did not have any nausea or vomiting. The pain was so intense, they brought him int o the emergency room where he underwent a CT scan, which did not demonstrate any acute abnormalities. I believe there may have been some misunderstanding between the emergency room physicians and the p atient as when the ER called me, they told me that his CT demonstrated a bowel obstruction and the pa tient has been vomiting. On my discussion with the patient, he denies any nausea, vomiting, and stat es his abdomen has not been distended and he has been having regular bowel movements and eating appro priately. However, his pain was not triggered by food and he states this pain has been ongoing for s everal years now. It usually hurts almost every day, but the pain episodes will occur once or twice a week were they are very severe. This pain episode was particularly worse than prior episodes to e point where he could not deal with it at home. The patient has not had any change in his bowel mov ements. He states that he has no blood in his stools. Again, he has had no nausea, vomiting, fevers , chills, or dizziness. He did have diaphoresis with the pain episodes he denies any chest sascha n or shortness of breath. He does not have dyspnea with exertion. He is not having any cough. He s tates the pain is always localized to the right upper quadrant and it is not necessarily made worse b y eating or certain activities, but will occur spontaneously. He denies any back pain, suprapubic pa in or flank pain. I had placed him in the hospital out of concern for possible bowel obstruction, al though upon reviewing his CT, there is little evidence to show that he has any type of bowel obstruct ion. However, I did obtain an amylase and lipase, both of which were elevated currently. ALLERGIES: None. CURRENT HOME MEDICATIONS: No prescription medications. The patient takes herbal supplements. PAST MEDICAL HISTORY: 1. Renal cell carcinoma, status post nephrectomy. 2. Perirectal abscess. PAST SURGICAL HISTORY: 1. I and D of rectal abscess in 10/[address] Son. 2. Laparoscopic hand assisted right radical nephrectomy with Dr. Valencia in 05/30/2017. FAMILY HISTORY: Noncontributory. SOCIAL HISTORY: The patient used to smoke, but quit. He denies illicit drug use other than marijuan a, which he had some time used for a pain that occurred previously. REVIEW OF SYSTEMS: A 12-point review of system was commented on the HPI for pertinent positives and negatives. Remainder of 12-point review of systems that was reviewed and is otherwise negative. PHYSICAL EXAMINATION: GENERAL: The patient appears slightly uncomfortable, but is in no significant distress. A well-nour ished, well-developed and he appears stated age. HEENT: Normocephalic, atraumatic. Sclera nonicteric. Pupils are symmetric and round. Moist mucous membranes. Trachea midline. CARDIOVASCULAR: Regular rate and rhythm. Normal S1 and S2. Symmetric pulses. CHEST: No increased work of breathing. Symmetric expansion. LUNGS: Clear to auscultation. ABDOMEN: Soft, nondistended. Significant tenderness to palpation in the right upper quadrant and ep igastric area, no tenderness on the left, no tenderness in the suprapubic area, no CVA tenderness. T here is no organomegaly. Bowel sounds are positive. There is no guarding, rebound tenderness or per itoneal signs. Incisions are healing well without evidence of infection or herniation. GENITOURINARY: Unremarkable. Penis is normal. Testes are descended. Scrotum is otherwise normal. EXTREMITIES: No clubbing, cyanosis, or edema. MUSCULOSKELETAL: No joint deformities or joint erythema noted. Full range of motion. SKIN: Warm and dry. Good turgor. No rashes or lesions. NEUROLOGIC: Cranial nerves II-XII appear grossly intact. There are no obvious focal, motor or senso ry deficits identified. PSYCHIATRIC: Alert and oriented x3. Appropriate mood and affect for situation. LABORATORY EVALUATION: A full set of labs are in the [facility] system, which I have reviewed. Of not e, the patient's white count is 7.3 with hemoglobin of 13.8. Creatinine is currently 1.37. AST and ALT are normal. Bilirubin is normal. Amylase is 230, lipase is 194. Urinalysis is completely negat javier. IMAGING: CT of the abdomen pelvis with contrast done this morning has not been officially read. On my review, there does not appear to be any distention or inflammation around the gallbladder. The salcido rgical bed for the right kidney does not demonstrate any hematoma or abscess. There does not appear to be any hernias within the abdominal wall. The bowel appears nondilated. There are no air-fluid l evels. There is air and stool throughout the colon. No evidence of ileus or bowel obstruction. The re does not appear to be any significant fluid or inflammation surrounding the pancreas. ASSESSMENT AND PLAN: A 36-year-old male with likely pancreatitis based on the amylase and l ipase. I think he should stay in the hospital strictly for his pancreatitis and we will leave him n. p.o. with IV fluids. I will have HIDA scan done to ensure that he does not have any obstruction of h is gallbladder potentially causing some of the problems, but I think he would benefit from a consulta tion with General Surgery and GI Medicine, which we will get once the HIDA scan is completed. In the meantime, we will perform bowel rest and await resolution of his pancreatitis. This is a patient of Dr. Valencia's and I will sign out to her in the morning and she will resume care on my stead. PLAN 1. N.p.o. 2. IV fluids. 3. Pain control with morphine. 4. HIDA scan. 5. Consultation with GI Medicine and General Surgery in the morning. We will notify Dr. Son as beatriz coppola is his previous surgeon.
[2017-06-10 05:43] LABS: #Lymphocytes 0.9 thou/uL (1.20-3.40); #Monocytes 0.5 thou/uL (0.11-0.59); #Neutrophils 6.7 thou/uL (1.40-6.50); %Basophils 0.5 % (0.0-1.0); %Lymphocytes 10.8 % (21.0-51.0); %Monocytes 5.7 % (0.0-10.0); %Neutrophils 82.9 % (42.0-75.0); Hemoglobin 13.5 g/dL (14.0-18.0); Mean Corpuscular HGB CONC 35.8 g/dL (32.0-36.0); Mean Corpuscular Hemoglobin 31.7 pg (27.0-31.0); Mean Corpuscular Volume 88.7 fl (80.0-94.0); Mean Platelet Volume 7.4 fL (7.4-10.4); Platelet Count 237 thou/uL (130-400); RBC Distribution Width 11.2 % (11.5-14.5); Red Blood Cell (RBC) Count 4.26 mill/uL (4.70-6.10); White Blood Cell (WBC) Count 8.1 thou/uL (4.8-10.8)
[2017-06-10 06:12] LABS: ALT (SGPT) 37 U/L (8-55); AST (SGOT) 30 U/L (5-34); Alkaline Phosphatase 66 U/L (40-150); Anion Gap 12 mmol/L (10-20); BUN (Urea Nitrogen) 12 mg/dL (8.9-20.6); Bilirubin, Total 0.5 mg/dL (0.2-1.2); Calc. Creatinine Clearance 147 mL/min (70-130); Calcium 9.4 mg/dL (7.8-10.44); Carbon Dioxide 21 mmol/L (22-29); Chloride 106 mmol/L (98-107); Estimated GFR-MDRD 75; Globulin 3.5 g/dL (2.4-3.5); Glucose 110 mg/dL (70-105); Lipase 66 U/L (8-78); Potassium 4.2 mmol/L (3.5-5.1); Protein, Total 7.5 g/dL (6.0-8.3); Sodium 135 mmol/L (136-145)
--- NOTE | 2017-06-10 06:17 | CON ---
DATE OF CONSULTATION: 06/09/2017 REASON FOR CONSULTATION: Right upper quadrant abdominal pain. HISTORY OF PRESENT ILLNESS: Mr. Luu is a pleasant 36-year-old gentleman who is admitted for right upper quadrant abdominal pain with some radiation to the back at times. He had a CAT scan that sugg ested possibly some gallstones. The symptoms started about a year ago and intermittently would occur . The patient describes this as stabbing sharp pain, which come and go; sometimes were a few seconds , other times for longer. In the past several months it has been happening more frequently. The pat hayley's translates for him. There is no relation to eating or bowel function. Initially, the patient presented into the [facility] back in 11/2016. Apparently, he had been found to have a renal mass on the CAT scan at [facility] when he went in for rectal abscess melany t was drained. He had [facility] in 09/2016 and [facility] in 11/2016. Dr. Son saw the patient around the same time the definitive surgery for his perirectal abscess and get an ultrasound of upper quadrant that time showed no gallstones. Also, the patient removed with a right renal mass which turned out to be a renal cell carcinoma. Melany t was on 05/20/2017. The patient's states they came back to the hospital as his pain in the rig ht upper abdomen had come back and was worse last night, bringing to his knees and was making him cry . No nausea, vomiting, heartburn, indigestion, melena, hematochezia or hematemesis. He has no castaneda e in bowel function. PAST MEDICAL HISTORY: Otherwise negative. PAST SURGICAL HISTORY: Otherwise negative. SOCIAL HISTORY: Negative for alcohol, drugs, and tobacco. He was a heavy drinker of alcohol in the past; however, before his renal cell carcinoma diagnosis. MEDICATIONS: At home, he was on Tylenol, but he was not taking it. Here he was given tramadol, Phen ergan p.r.n., MiraLax p.r.n., Zofran p.r.n., Pepcid, and Benadryl p.r.n. PHYSICAL EXAMINATION: GENERAL: Resting comfortably in bed. He is in no distress. NECK: Supple without adenopathy. HEART: Regular rate and rhythm. LUNGS: Clear. ABDOMEN: Soft. The incisions from his previous nephrectomy are well healed with no evidence of hernandez ias. He has got some tenderness over the ribs in the right side of the top. He has some left quadra nt tenderness. He has some right lower quadrant tenderness when we gp back to examine the right uppe r and then talked to him and right lower is no longer tender. There is no rebound. There is volunta ry guarding, it is better on the right abdomen. Bowel sounds are positive. There is no palpable hep atosplenomegaly. There is no overt ascites, shifting dullness or fluid wave. EXTREMITIES: No clubbing or edema. RECTAL: Reveals scar in the right buttocks with no evidence of fistulas or drainage. There is no ev idence of perianal skin tags or lesions. LABORATORY STUDIES: White count 5.8, hemoglobin 13.3, platelet count 230. Sodium 137, potassium 3.8 , chloride 106, BUN and creatinine are 10 and 1.2. Liver functions normal. Globulin is 3.8, amylase was 260, lipase 193. A CAT scan of abdomen and pelvis were performed on 06/08/2017 it was without c ontrast showed possible gallstones and bowel gas pattern with possible mild ileus or enteritis and sl ightly dilated loops of bowel proximally, but decompressed distally. There is, however, no oral cont rast given socially difficult to make heads or tails these pictures. ASSESSMENT: Chronic upper quadrant pain, it is unclear. This may represent gallbladder disease, alt zafar it would be atypical in this man, he had no gallstones shown on ultrasound. He did have possib ly some stones on a CAT scan. This admission, he has got a HIDA scan that has a normal ejection frac tion, but there was some slow drainage of contrast by report. This may be biliary pain. Differentia l diagnosis would include enteritis. Functional bowel disorder, postoperative complications. There seemed to be no evidence of infection abscesses or hematomas on imaging. PLAN: I talked to Dr. Son and he is already schedule to take him to the operating room today, catalino en his gallbladder out, this is not unreasonable. Another course would be to consider endoscopy or s mall bowel follow through and let Dr. Son to take a look at the small bowel and to make sure no si gns of Crohn's disease in light of his recent perirectal abscess issue. I will follow along with you .
[2017-06-10] MEDS ORDERED: Magnesium Citrate 300 ML BOT PO SCH (07:00)
[2017-06-10] MEDS: Sodium Chloride 0.9% 1,000 ML IV SCH (07:19)
[2017-06-10 08:09] VITALS: BP 112/75; TEMP 98.3
[2017-06-10] MEDS: Docusate 100 MG CAP PO SCH (08:42)
[2017-06-10] MEDS: Heparin 5,000 UNITS/ML VIAL SC SCH (08:42)
[2017-06-10] MEDS: Famotidine 20 MG TAB PO SCH (08:42)
[2017-06-10] MEDS ORDERED: Polyethylene Glycol 3350 17 GM Packet PO SCH (09:00)
--- NOTE | 2017-06-11 00:31 | DIS ---
DATE OF SERVICE: 06/10/2017 ADMISSION DIAGNOSIS: Right upper quadrant pain. DISCHARGE DIAGNOSIS: Right upper quadrant pain secondary to presumed cholecystitis, status post lapa roscopic cholecystectomy. Please see the patient's H and P for full details of his admission, but ultimately he has undergone a right hand assist laparoscopic nephrectomy on 05/30/2017 and was admitted with concern for small-bow el obstruction, but ultimately does have the same right upper quadrant pain he previously had. GI an d General Surgery were consulted and ultimately the pain was felt to be consistent with a gallbladder etiology, so we set up for resection and underwent this on 06/09/2017. He did well postoperatively and was tolerating a diet by the date of discharge. His lipase had come down to normal and he had no urologic complications or sequela during his stay. I will see him in the office as previously dez wagner.
== END 2017-06-10 13:31 | disposition home or self-care (01) | DRG 419 ==
LOC: ERS 00:28 → SURG A 08:29
PROVIDERS: ADMIT Urology; ATTEND Urology
PROC: 0FT44ZZ Resection of Gallbladder, Percutaneous Endoscopic Approach (ICD-10-PCS; principal; 2017-06-09)
PROC: 0DNU4ZZ Release Omentum, Percutaneous Endoscopic Approach (ICD-10-PCS; 2017-06-09)
DX: K80.40 Calculus of bile duct with cholecystitis, unspecified, without obstruction (principal); F12.90 Cannabis use, unspecified, uncomplicated; Z87.891 Personal history of nicotine dependence; Z90.5 Acquired absence of kidney; K66.0 Peritoneal adhesions (postprocedural) (postinfection)
CPT/HCPCS: 36415; 47532; 74177; 78227; 80048; 80053; 81003; 82150; 83690; 85025; 88304; 96361; 96374; A4216; A9537; J0670; J1100; J1610; J1644; J1956; J2001; J2270; J2704; J3010; Q0162; Q9961

== ENCOUNTER 2018-01-08 18:52 | Emergency (ER) | payer OTHER, SELFPAY ==
[2018-01-08 19:13] LABS: #Basophils 0.1 thou/uL (0.0-0.2); #Eosinphils 0.4 thou/uL (0.0-0.7); #Lymphocytes 2.3 thou/uL (1.20-3.40); #Monocytes 0.5 thou/uL (0.11-0.59); #Neutrophils 4.7 thou/uL (1.40-6.50); %Basophils 0.8 % (0.0-1.0); %Eosinophils 4.8 % (0.0-10.0); %Lymphocytes 28.7 % (21.0-51.0); %Monocytes 6.3 % (0.0-10.0); %Neutrophils 59.5 % (42.0-75.0); Hemoglobin 14.6 g/dL (14.0-18.0); Mean Corpuscular HGB CONC 35.1 g/dL (32.0-36.0); Mean Corpuscular Hemoglobin 31.5 pg (27.0-31.0); Mean Corpuscular Volume 89.6 fL (78.0-98.0); Platelet Count 208 thou/uL (130-400); RBC Distribution Width 11.9 % (11.5-14.5); Red Blood Cell (RBC) Count 4.62 mill/uL (4.70-6.10); White Blood Cell (WBC) Count 7.9 thou/uL (4.8-10.8)
[2018-01-08 19:35] LABS: ALT (SGPT) 52 U/L (8-55); AST (SGOT) 37 U/L (5-34); Albumin 4.5 g/dL (3.5-5.0); Alkaline Phosphatase 91 U/L (40-150); Anion Gap 11 mmol/L (10-20); BUN (Urea Nitrogen) 19 mg/dL (8.9-20.6); Bilirubin, Total 0.4 mg/dL (0.2-1.2); CK (CPK) 114 U/L (30-200); Calc. Creatinine Clearance 0 mL/min (70-130); Calcium 9.4 mg/dL (7.8-10.44); Carbon Dioxide 24 mmol/L (22-29); Chloride 106 mmol/L (98-107); Estimated GFR-MDRD 49; Globulin 3.9 g/dL (2.4-3.5); Glucose 109 mg/dL (70-105); Potassium 3.8 mmol/L (3.5-5.1); Protein, Total 8.4 g/dL (6.0-8.3); Sodium 137 mmol/L (136-145)
[2018-01-08 19:39] LABS: CKMB 1.2 ng/mL (0-6.6); Troponin I Less than 0.010 ng/mL (< 0.028)
--- NOTE | 2018-01-08 19:47 | RAD ---
CHEST TWO VIEWS: Date: 01-08-18 Comparison: None. History: Chest pain, dizziness, abdominal pain, cough and fever. FINDINGS: Lungs are clear. Heart and mediastinal contours are grossly unremarkable. IMPRESSION: No acute findings. POS: [facility]
== END 2018-01-08 20:49 | disposition home or self-care (01) ==
LOC: ERS 18:52
DX: R07.89 Other chest pain (principal); Z87.891 Personal history of nicotine dependence
CPT/HCPCS: 71046; 80053; 82550; 82553; 83690; 84484; 85025; 85379; 93005

== ENCOUNTER 2018-01-12 15:25 | Outpatient (CLI) | payer OTHER ==
--- NOTE | 2018-01-12 18:17 | ULT ---
RENAL ULTRASOUND: CLINICAL HISTORY: History of right renal neoplasm, malignant neoplasm. FINDINGS: The right kidney is absent. The left kidney demonstrates a length of approximately 13 cm, as demonst rated without overt hydronephrosis. No suspicious left renal lesion is seen. The urinary bladder is mildly distended. IMPRESSION: 1. Absence of right kidney. 2. No acute process of the left kidney. POS: [facility]
== END 2018-01-12 15:26 | disposition home or self-care (01) ==
LOC: BICULT 15:25
PROVIDERS: ATTEND Urology
DX: C64.1 Malignant neoplasm of right kidney, except renal pelvis (principal); Z90.5 Acquired absence of kidney
CPT/HCPCS: 76770